=== PATIENT | male | born 1990 | race American Indian/Alaskan Native ===

== ENCOUNTER 2022-02-14 11:06 | Emergency (ER) | payer SELFPAY ==
[2022-02-14 11:41] VITALS: BP 106/60
== END 2022-02-14 19:15 | disposition left against medical advice (07) ==
LOC: ED 11:06
DX: T78.40XA Allergy, unspecified, initial encounter (principal); X58.XXXA Exposure to other specified factors, initial encounter; Z53.21 Procedure and treatment not carried out due to patient leaving prior to being seen by health care provider